=== PATIENT | male | born 1995 | race African-American/Black ===

== ENCOUNTER 2017-08-13 19:56 | Emergency (ER) | payer OTHER ==
[2017-08-13] MEDS ORDERED: fentaNYL 100 MCG/2 ML INJECTION (J3010) As Ordered (20:24)
[2017-08-13] MEDS: fentaNYL 100 MCG/2 ML INJECTION (J3010) IV ×2 (20:27→21:46)
[2017-08-13] MEDS: NS 1,000 ML IV (20:45)
[2017-08-13] MEDS: MORPHINE 4 MG/ML 1ML VIAL/SYRINGE (J2270) IV (21:02)
[2017-08-13 21:17] LABS: BASO # 0.1 10^3/uL (0.0-0.2); BASO % 0.5 % (0.0-1.0); EOS # 0.2 10^3/uL (0.0-0.50); EOS % 1.1 % (0.0-3.0); HEMATOCRIT 37.8 % (42.0-52.0); HEMOGLOBIN 12.4 g/dl (13.5-17.5); IMMATURE GRANULOCYTE % 0.4 % (0-3.0); LYMPH # 1.8 10^3/uL (1.5-6.5); LYMPH % 13.3 % (24.0-44.0); MEAN CORPUSCULAR HEMOGLOBIN 28.7 pg (27.0-33.0); MEAN CORPUSCULAR HGB CONC 32.8 g/dl (32.0-36.5); MEAN CORPUSCULAR VOLUME 87.5 fl (80.0-96.0); MONO # 0.9 10^3/uL (0.0-0.8); MONO % 6.6 % (0.0-5.0); NEUTROPHILS # 10.9 10^3/uL (1.8-7.7); NEUTROPHILS % 78.1 % (36.0-66.0); PLATELET COUNT, AUTOMATED 278 10^3/uL (150-450); RED BLOOD COUNT 4.32 10^6/uL (4.30-6.10); RED CELL DISTRIBUTION WIDTH 11.2 % (11.5-14.5); WHITE BLOOD COUNT 13.9 10^3/uL (4.0-10.0)
[2017-08-13 21:45] LABS: ANION GAP 12 MEQ/L (8-16); BLOOD UREA NITROGEN 19 MG/DL (7-18); CALCIUM LEVEL 8.7 MG/DL (8.5-10.1); CARBON DIOXIDE LEVEL 27 MEQ/L (21-32); CHLORIDE LEVEL 103 MEQ/L (98-107); CREATININE FOR GFR 1.47 MG/DL (0.70-1.30); GLOMERULAR FILTRATION RATE > 60.0 (>60); GLUCOSE, FASTING 100 MG/DL (70-100); POTASSIUM SERUM 3.6 MEQ/L (3.5-5.1); SODIUM LEVEL 142 MEQ/L (136-145)
[2017-08-13] MEDS ORDERED: OXYCODONE/APAP 5MG/325MG(BULK FOR ED) 1 TABLET PO (22:00)
== END 2017-08-13 22:41 | disposition home or self-care (01) ==
LOC: M ED 19:56
DX: S82.442A Displaced spiral fracture of shaft of left fibula, initial encounter for closed fracture (principal); S93.05XA Dislocation of left ankle joint, initial encounter; W52.XXXA Crushed, pushed or stepped on by crowd or human stampede, initial encounter; Y92.9 Unspecified place or not applicable; Y93.61 Activity, american tackle football; Y99.9 Unspecified external cause status
CPT/HCPCS: J2270

== ENCOUNTER 2018-09-25 00:59 | Inpatient (IN) | payer OTHER ==
[~2018-09-25] VITALS: Ht 182.9 cm; Wt 90.9 kg
[2018-09-25 02:15] LABS: BASO % 0.3 % (0.0-1.0); EOS # 0.1 10^3/uL (0.0-0.50); EOS % 0.5 % (0.0-3.0); HEMATOCRIT 39.9 % (42.0-52.0); HEMOGLOBIN 12.8 g/dl (13.5-17.5); LYMPH # 1.2 10^3/uL (1.5-6.5); LYMPH % 9.9 % (24.0-44.0); MEAN CORPUSCULAR HEMOGLOBIN 29.7 pg (27.0-33.0); MEAN CORPUSCULAR HGB CONC 32.1 g/dl (32.0-36.5); MEAN CORPUSCULAR VOLUME 92.6 fl (80.0-96.0); MONO # 0.7 10^3/uL (0.0-0.8); MONO % 5.7 % (0.0-5.0); NEUTROPHILS # 9.8 10^3/uL (1.8-7.7); NEUTROPHILS % 83.2 % (36.0-66.0); PLATELET COUNT, AUTOMATED 279 10^3/uL (150-450); RED BLOOD COUNT 4.31 10^6/uL (4.30-6.10); WHITE BLOOD COUNT 11.7 10^3/uL (4.0-10.0)
--- NOTE | 2018-09-25 02:57 | REPVR ---
EXAM: CT Head Without Contrast EXAM DATE/TIME: 09/25/2018 1:59 AM CLINICAL HISTORY: 23 years old, male; Altered mental status/memory loss TECHNIQUE: Imaging protocol: Computed tomography images of the head without contrast. Radiation optimization: All CT scans at this facility use at least one of these dose optimization techniques: automated exposure control; mA and/or kV adjustment per patient size (includes targeted exams where dose is matched to clinical indication); or iterative reconstruction. COMPARISON: No relevant prior studies available. FINDINGS: Brain: No acute intracranial hemorrhage or mass effect. No discrete geographic area of hypoattenuation to suggest territorial infarct identified at this time. Ventricles: No ventriculomegaly. Bones/joints: No acute fracture. Sinuses: Visualized sinuses are unremarkable. No fluid levels. Mastoid air cells: Visualized mastoid air cells are well aerated. No mastoid effusion. Soft tissues: Unremarkable. IMPRESSION: No acute intracranial abnormality. Electronically signed by: Jose Rowe On 09/25/2018 02:56:40 AM
[2018-09-25 03:15] LABS: ACETAMINOPHEN LEVEL < 2.0 UG/ML (10.0-30.0); ALBUMIN 4.2 GM/DL (3.2-5.2); ALT/SGPT 24 U/L (12-78); BILIRUBIN,DIRECT < 0.1 MG/DL (0.0-0.2); BILIRUBIN,TOTAL 0.3 MG/DL (0.2-1.0); BLOOD UREA NITROGEN 19 MG/DL (7-18); CARBON DIOXIDE LEVEL 28 MEQ/L (21-32); CHLORIDE LEVEL 105 MEQ/L (98-107); CK-MB VALUE MASS 2.7 NG/ML (<3.6); CPK CREATINE PHOSPHOKINASE 677 U/L (39-308); CREATININE FOR GFR 1.49 MG/DL (0.70-1.30); ETHYL ALCOHOL (ETHANOL) < 0.003 % (0.000-0.010); GLOMERULAR FILTRATION RATE > 60.0 (>60); GLUCOSE, FASTING 101 MG/DL (70-100); POTASSIUM SERUM 4.3 MEQ/L (3.5-5.1); SALICYLATE LEVEL < 1.7 MG/DL (5.0-30.0); SODIUM LEVEL 139 MEQ/L (136-145); TOTAL PROTEIN 7.9 GM/DL (6.4-8.2); TROPONIN I < 0.02 NG/ML (< 0.10)
--- NOTE | 2018-09-25 04:20 | ECGEPIP ---
[facility] - ED Test Date: 2018-09-25 Pat Name: ISIAH BOUCHER Department: Room: - Gender: Male Steel Cutter: juan manuel : 1995 Requested By: RISHABH Hernández Order Number: [id number] Reading MD: Umang Villarreal Measurements Intervals [place] Rate: 64 P: 37 FL: 193 QRS: 44 QRSD: 102 T: 21 QT: 354 QTc: 365 Interpretive Statements SINUS RHYTHM WITH OCCASIONAL SUPRAVENTRICULAR PREMATURE COMPLEXES INCOMPLETE RIGHT BUNDLE BRANCH BLOCK BENIGN EARLY REPOLARIZATION NO PRIORS FOR COMPARISON Electronically Signed on 09-25-2018 4:20:09 EDT by Umang Villarreal
[2018-09-25 04:22] LABS: AMPHETAMINES LEVEL URINE NEGATIVE (NEGATIVE); BARBITURATES URINE NEGATIVE (NEGATIVE); BENZODIAZEPINES URINE NEGATIVE (NEGATIVE); CANNABINOIDS URINE NEGATIVE (NEGATIVE); COCAINE METABOLITE URINE NEGATIVE (NEGATIVE); METHADONE URINE NEGATIVE (NEGATIVE); OPIATES URINE NEGATIVE (NEGATIVE); PHENCYCLIDINE URINE NEGATIVE (NEGATIVE)
[2018-09-25] MEDS ORDERED: LORazepam 2 MG/ML VIAL (J2060) IM STA (05:02)
[2018-09-25] MEDS ORDERED: LORazepam 1 MG TAB PO PRN (06:00)
[2018-09-25] MEDS ORDERED: HALOPERIDOL 5 MG TAB PO PRN (06:00)
[2018-09-25] MEDS ORDERED: MAALOX 30 ML SUSP *UDC PO PRN (06:00)
[2018-09-25] MEDS ORDERED: traZODone 50 MG TAB PO PRN (06:00)
[2018-09-25] MEDS ORDERED: MOM 30ML SUSPENSION UDC PO PRN (06:00)
[2018-09-25] MEDS ORDERED: ACETAMINOPHEN TAB 650MG DOSE (2X325MG) PO PRN (06:00)
--- NOTE | 2018-09-25 07:42 | REP ---
Clinical: Altered mental status . Comparison: None . Findings: The mediastinum and cardiac silhouette are stable and within normal limits for portable technique. The lung woodward are clear without acute consolidation, effusion, or pneumothorax. Skeletal structures are intact. Impression: No acute cardiopulmonary process appreciated. Electronically Signed by Cameron Watkins MD 09/25/2018 07:34 A
[2018-09-25 09:52] VITALS: BP 135/79
--- NOTE | 2018-09-25 11:56 | MHHPEPDOC ---
General Date Of Admission: Sep 25, 2018 Legal Status: 9.39 Chief Complaint "Nate is the current president." History of Present Illness HISTORY OF THE PRESENT ILLNESS: Patient is a 23 -year-old , Jehovah Witness, AD, male, with no previous psychiatric history who was brought in by command due to bizarre behavior per ED. When pt in ED he was unable to formulate sentences beyond "yes/no" responses and would say things this "ummm" and "ok" when asked why he was in the hospital, exhibiting bizarre behavior, disorganized thoughts, anxiety/fear, flat affect, attempting to leave room frequently but redirectable, when able to formulate a sentence made illogical comments such as "Nate is the current President" and "I just wanted blue eyes, ummm, light skin tone." He did not fully endorse AVH and denied SI/HI ("no"). Utox neg. Psychiatric Review of Systems Depression (2 or more weeks): denies Maria (4 or more days of): denies Psychosis: auditory hallucination, disorganization PTSD: denies Anxiety: denies Anxiety/ 6 months or more of: restlessness, keyed up Past Psychiatric History Previous Psychiatric Diagnosis: denies Previous Psychiatric Admissions: denies Suicide Attempts: denies Psychiatric Follow-up: denies Psychiatric medications: denies Past Medical History Medical Problems denies Head Injury: No Seizures: No Hospitalizations: No Surgeries: No Family Medical/Psychiatric HX Medical Problems noncontributory Psychiatric Disorders: No Addiction: No Suicide Attemps/Completions: No Addiction History denies (utox neg), other (could have possible been slipped unknowning a hallucinogenic or psychodelic by someone he was with last [facility]) Social History Childhood: Raised a a [place] Witness, family very close, 2 parent home and has siblings, good childhood Abuse/Trauma:denies Current Living Situation: [facility] Education: high school grad Employment: [employer] Social Support: family Legal: denies Marital: single Mental Status Examination General Appearance: well groomed, appears stated age, hospital scubs/clothing Build: average Demeanor: average Eye Contact: fair Activity: average Behavior: cooperative Speech: clear, spontaneous, reg/rate,rhythm,volume Mood: euthymic Mood "ok" Affect: full, appropriate, congruent Thought Process: logical/linear, intact Thought Content (Delusions): none reported, denies SI, HI, AVH Thought Content (Other): none reported Thought Content (Aggressive): none reported Perception (Hallucinations): none reported Perception (Other): none reported Cognition (Impairment of): none reported Cognition(Intelligence Est.): average Oriented: Awake, Alert, Oriented times three Insight: fair Judgment: Fair Psychosis: Denies Diagnoses Unspecified Psychosis R/O psychosis secondary to hallucinogenic vs psychedelic (given to him w/o consent or knowledge) A-FIB/CHADSVASC A-FIB History Current/History of A-Fib/PAF?: No Current PO Anticoag Therapy: No Treatment Treatment ordered: NONE Reason Anticoagulant not given: Not indicated/[id number] Assessment Pt seen and oriented to time and situation. He sounds logical and is not acting bizarre or exhibiting any symptoms of disorganization. He is calm, cooperative, and pleasant. States that some friends asked him to go out and didn't want to at first then eventually did in friend's care, friends offered him a drink which he states he refused, at sometime starting having difficulty thinking, felt "strange," unable to focus on anything, was hearing "something" like maybe a voice, and scared as didn't know what was happening to him. States today that he has never felt that way before and feels more like himself today. Unsure if he was slipped a drug unknowingly by one of the people he was with, possibly a hallucinogenic or psychedelic (base on symptoms in ED and neg utox). Per staff currently being investigated for theft of thousands of dollars from some one that is an acquaintance of his. Initial Treatment Plan 1. Patient was admitted on a 9.39 status. 2. Complete history was obtained. 3. With patients permission, family will be contacted and database will be expanded. 4. Patients medication regimen will be reviewed and changed accordingly. 5. Patient will be provided with protected environment. 6. Patient will be treated with individual, group, and milieu therapies. 7. Patient will receive supportive psych-education. 8. Discharge planning will commence immediately. 9. Outpatient follow-up treatment will be strongly recommended. 10. The initial treatment plan will focus initially on: * Depression. * Risk for suicide. * Substance abuse. 11. monitor for safety ESTIMATED LENGTH OF STAY: 5-7 DAYS. TIME SPENT COUNSELING AND COORDINATING INITIAL CARE: 60 minutes. Vital Signs Vital Signs Date Time Temp Pulse Resp B/P (MAP) Pulse Ox O2 Delivery O2 Flow Rate FiO2 09/25/18 09:52 98.7 70 18 135/79 (97) 09/25/18 09:30 99 09/25/18 06:21 Room Air Laboratory Data 24H Labs Laboratory Tests 2 09/25/18 01:15: Bedside Glucose (Misc Panel) 97 09/25/18 02:08: Immature Granulocyte % (Auto) 0.4, White Blood Count 11.7H, Red Blood Count 4.31, Hemoglobin 12.8L, Hematocrit 39.9L, Mean Corpuscular Volume 92.6, Mean Corpuscular Hemoglobin 29.7, Mean Corpuscular Hemoglobin Concent 32.1, Red Cell Distribution Width 11.3L, Platelet Count 279, Neutrophils (%) (Auto) 83.2H, Lymphocytes (%) (Auto) 9.9L, Monocytes (%) (Auto) 5.7H, Eosinophils (%) (Auto) 0.5, Basophils (%) (Auto) 0.3, Neutrophils # (Auto) 9.8H, Lymphocytes # (Auto) 1.2L, Monocytes # (Auto) 0.7, Eosinophils # (Auto) 0.1, Basophils # (Auto) 0.0, Nucleated Red Blood Cells % (auto) 0.0, Anion Gap 6L, Glomerular Filtration Rate > 60.0, Calcium Level 9.0, Aspartate Amino Transf (AST/SGOT) 25, Alanine Aminotransferase (ALT/SGPT) 24, Alkaline Phosphatase 52, Total Bilirubin 0.3, Direct Bilirubin < 0.1, Total Creatine Kinase 677H, Creatine Kinase MB 2.7, Creatine Kinase MB Relative Index 0.40, Troponin I < 0.02, Total Protein 7.9, Albumin 4.2, Albumin/Globulin Ratio 1.14, Thyroid Stimulating Hormone (TSH) 1.580, Salicylates Level < 1.7L, Acetaminophen Level < 2.0L, Ethyl Alcohol Level < 0.003 09/25/18 02:09: Urine Color YELLOW, Urine Appearance CLEAR, Urine pH 6.0, Urine Specific [place] 1.027, Urine Protein 1+H, Urine Glucose (UA) NEGATIVE, Urine Ketones TRACEH, Urine Blood 1+H, Urine Nitrite NEGATIVE, Urine Bilirubin NEGATIVE, Urine Urobilinogen 0.2, Urine Leukocyte Esterase NEGATIVE, Urine WBC (Auto) 1, Urine RBC (Auto) 11H, Urine Hyaline Casts (Auto) 0, Urine Bacteria (Auto) NEGATIVE, Urine Squamous Epithelial Cells 0, Urine Mucus (Auto) SMALL, Urine Sperm (Auto) 09/25/18 03:49: Urine Amphetamines Screen NEGATIVE, Urine Benzodiazepines Screen NEGATIVE, Urine Opiates Screen NEGATIVE, Urine Methadone Screen NEGATIVE, Urine Barbiturates Screen NEGATIVE, Urine Phencyclidine Screen NEGATIVE, Urine Cocaine Metabolite Screen NEGATIVE, Urine Cannabinoids Screen NEGATIVE CBC/BMP Laboratory Tests 09/25/18 02:08 Red Blood Count 4.31, Mean Corpuscular Volume 92.6, Mean Corpuscular Hemoglobin 29.7, Mean Corpuscular Hemoglobin Concent 32.1, Red Cell Distribution Width 11.3 L, Neutrophils (%) (Auto) 83.2 H, Lymphocytes (%) (Auto) 9.9 L, Monocytes (%) (Auto) 5.7 H, Eosinophils (%) (Auto) 0.5, Basophils (%) (Auto) 0.3, Neutrophils # (Auto) 9.8 H, Lymphocytes # (Auto) 1.2 L, Monocytes # (Auto) 0.7, Eosinophils # (Auto) 0.1, Basophils # (Auto) 0.0 Medications No Active Prescriptions or Reported Meds Allergies Coded Allergies: No Known Allergies (Unverified , 09/25/18) MARY RICHARDS DO Sep 25, 2018 11:55
--- NOTE | 2018-09-25 14:54 | HPEPDOC ---
[facility] Medical History & Physical Date of Admission Sep 25, 2018 Date of Service: Sep 25, 2018 Attending Physician: BISHOP HAWKINS MD History and Physical CHIEF COMPLAINT: unusual thoughts HISTORY OF PRESENT ILLNESS: 23yo male w no sig PMH who is admitted to the mental health unit after he was observed at [facility] to be behaving unusually with unusual thoughts. He currently denies any complaints or any pain. Denies SI/HI. PAST MEDICAL HISTORY: None PAST SURGICAL HISTORY: L ankle surgery in 2018 SOCIAL HISTORY: permanent home is in [place] 2-3 drinks per day on the weekends no smoking no recreational drugs FAMILY HISTORY: both grandmothers with DM as well as father w DM ALLERGIES: Please see below. REVIEW OF SYSTEMS: neg in systems except as above HOME MEDICATIONS: Please see below. PHYSICAL EXAMINATION: VITAL SIGNS: reviewed GENERAL APPEARANCE: NAD. HEENT: OP clear CARDIOVASCULAR: RRR no mrg LUNGS: CTAB no wrr ABDOMEN: soft NT ND MUSCULOSKELETAL: Moves all extremities equally EXTREMITIES: No c/c/e NEUROLOGICAL: AxO follows commands, no focal neuro deficits PSYCHIATRIC: decreased eye contact LABORATORY DATA: See below. ASSESSMENT: 23yo male w no prior PMH or past psych history admitted with unusual thoughts and behaviors . PLAN: - patient has no medical needs at this time. On no home medications - psychiatric plan of care per psychiatry Vital Signs Vital Signs Date Time Temp Pulse Resp B/P (MAP) Pulse Ox O2 Delivery O2 Flow Rate FiO2 09/25/18 09:52 98.7 70 18 135/79 (97) 09/25/18 09:30 99 09/25/18 06:21 Room Air Laboratory Data Labs 24H Laboratory Tests 2 09/25/18 01:15: Bedside Glucose (Misc Panel) 97 09/25/18 02:08: Immature Granulocyte % (Auto) 0.4, White Blood Count 11.7H, Red Blood Count 4.31, Hemoglobin 12.8L, Hematocrit 39.9L, Mean Corpuscular Volume 92.6, Mean Corpuscular Hemoglobin 29.7, Mean Corpuscular Hemoglobin Concent 32.1, Red Cell Distribution Width 11.3L, Platelet Count 279, Neutrophils (%) (Auto) 83.2H, Lymphocytes (%) (Auto) 9.9L, Monocytes (%) (Auto) 5.7H, Eosinophils (%) (Auto) 0.5, Basophils (%) (Auto) 0.3, Neutrophils # (Auto) 9.8H, Lymphocytes # (Auto) 1.2L, Monocytes # (Auto) 0.7, Eosinophils # (Auto) 0.1, Basophils # (Auto) 0.0, Nucleated Red Blood Cells % (auto) 0.0, Anion Gap 6L, Glomerular Filtration Rate > 60.0, Calcium Level 9.0, Aspartate Amino Transf (AST/SGOT) 25, Alanine Aminotransferase (ALT/SGPT) 24, Alkaline Phosphatase 52, Total Bilirubin 0.3, Direct Bilirubin < 0.1, Total Creatine Kinase 677H, Creatine Kinase MB 2.7, Creatine Kinase MB Relative Index 0.40, Troponin I < 0.02, Total Protein 7.9, Albumin 4.2, Albumin/Globulin Ratio 1.14, Thyroid Stimulating Hormone (TSH) 1.580, Salicylates Level < 1.7L, Acetaminophen Level < 2.0L, Ethyl Alcohol Level < 0.003 09/25/18 02:09: Urine Color YELLOW, Urine Appearance CLEAR, Urine pH 6.0, Urine Specific [place] 1.027, Urine Protein 1+H, Urine Glucose (UA) NEGATIVE, Urine Ketones TRACEH, Urine Blood 1+H, Urine Nitrite NEGATIVE, Urine Bilirubin NEGATIVE, Urine Urobilinogen 0.2, Urine Leukocyte Esterase NEGATIVE, Urine WBC (Auto) 1, Urine RBC (Auto) 11H, Urine Hyaline Casts (Auto) 0, Urine Bacteria (Auto) NEGATIVE, Urine Squamous Epithelial Cells 0, Urine Mucus (Auto) SMALL, Urine Sperm (Auto) 09/25/18 03:49: Urine Amphetamines Screen NEGATIVE, Urine Benzodiazepines Screen NEGATIVE, Urine Opiates Screen NEGATIVE, Urine Methadone Screen NEGATIVE, Urine Barbiturates Screen NEGATIVE, Urine Phencyclidine Screen NEGATIVE, Urine Cocaine Metabolite Screen NEGATIVE, Urine Cannabinoids Screen NEGATIVE CBC/BMP Laboratory Tests 09/25/18 02:08 Red Blood Count 4.31, Mean Corpuscular Volume 92.6, Mean Corpuscular Hemoglobin 29.7, Mean Corpuscular Hemoglobin Concent 32.1, Red Cell Distribution Width 11.3 L, Neutrophils (%) (Auto) 83.2 H, Lymphocytes (%) (Auto) 9.9 L, Monocytes (%) (Auto) 5.7 H, Eosinophils (%) (Auto) 0.5, Basophils (%) (Auto) 0.3, Neutrophils # (Auto) 9.8 H, Lymphocytes # (Auto) 1.2 L, Monocytes # (Auto) 0.7, Eosinophils # (Auto) 0.1, Basophils # (Auto) 0.0 Home Medications No Active Prescriptions or Reported Meds Allergies Coded Allergies: No Known Allergies (Unverified , 09/25/18) A-FIB/CHADSVASC A-FIB History Current/History of A-Fib/PAF?: No Current PO Anticoag Therapy: BISHOP Hoyt MD Sep 25, 2018 14:54
[2018-09-25 18:23] VITALS: BP 125/62
[2018-09-26 06:55] VITALS: BP 118/55
--- NOTE | 2018-09-26 09:17 | MHIPNPDOC ---
[facility] Progress Note Progress Note DATE OF SERVICE: 09/26/18 HISTORY: Patient is a 23 -year-old , Jehovah Witness, AD, male, with no previous psychiatric history who was brought in by command due to bizar re behavior per ED. When pt in ED he was unable to formulate sentences beyond "yes/no" responses and would say things this "ummm" and "ok" when asked why he was in the hospital, exhibiting bizarre behavior, disorganized thoughts, anxiety/fear, flat affect, attempting to leave room frequently but redirectable, when able to formulate a sentence made illogical comments such as "Nate is the current President" and "I just wanted blue eyes, ummm, light skin tone." He did not fully endorse AVH and denied SI/HI ("no"). Utox neg. Pt seen and oriented to time and situation. He sounds logical and is not acting bizarre or exhibiting any symptoms of disorganization. He is calm, cooperative, and pleasant. States that some friends asked him to go out and didn't want to at first then eventually did in friend's care, friends offered him a drink which he states he refused, at sometime starting having difficulty thinking, felt "strange," unable to focus on anything, was hearing "something" like maybe a voice, and scared as didn't know what was happening to him. States today that he has never felt that way before and feels more like himself today. Unsure if he was slipped a drug unknowingly by one of the people he was with, possibly a hallucinogenic or psychedelic (base on symptoms in ED and neg utox). Per staff currently being investigated for theft of thousands of dollars from some one that is an acquaintance of his. VITAL SIGNS: See below. NEW TEST RESULTS: See below. CURRENT MEDICATIONS: See below. MENTAL STATUS EXAMINATION: General Appearance: well groomed, appears stated age, hospital scubs/clothing Build: average Demeanor: average Eye Contact: fair Activity: average Behavior: cooperative Speech: clear, spontaneous, reg/rate,rhythm,volume Mood: euthymic Mood "ok" Affect: full, appropriate, congruent Thought Process: logical/linear, intact Thought Content (Delusions): none reported, denies SI, HI, AVH Thought Content (Other): none reported Thought Content (Aggressive): none reported Perception (Hallucinations): none reported Perception (Other): none reported Cognition (Impairment of): none reported Cognition(Intelligence Est.): average Oriented: Awake, Alert, Oriented times three Insight: fair Judgment: Fair Psychosis: Denies DIAGNOSES: Unspecified Psychosis R/O psychosis secondary to hallucinogenic vs psychedelic (given to him w/o consent or knowledge) ASSESSMENT:Pt seen and states that his mood is good and denies any symptoms of psychosis since the night he was admitted and feels like himself. He does not appear psychotic and is able to maintain attention with linear and logical thoughts. He is cooperative, appropriate, and pleasant. States he slept well last night. He is attending groups and finding them helpful. He denies SI/HI, hallucinations, delusions. Pt feels safe here. MANAGEMENT PLAN: d/c Thursday medications: haldol 10mg q6hr prn anxiety/agitation ativan 2mg q6hr prn anxiety/agitation trazodone 50mg qhs prn insomnia TIME SPENT: 30 minutes. Vital Signs Vital Signs Date Time Temp Pulse Resp B/P (MAP) Pulse Ox O2 Delivery O2 Flow Rate FiO2 09/26/18 06:55 97.2 50 12 118/55 (76) 09/25/18 09:30 99 09/25/18 06:21 Room Air Current Medications Current Medications Medications (Trade) Dose Ordered Sig/Kevin Route PRN Reason Start Time Stop Time Status Last Admin Dose Admin Acetaminophen (Tylenol Tab) 650 mg Q6HP PRN PO HEADACHE or DISCOMFORT 09/25/18 06:00 Al Hydrox/Mg Hydrox/Simethicone (Mylanta) 30 ml Q4HP PRN PO HEARTBURN/INDIGESTION 09/25/18 06:00 Haloperidol (Haldol) 5 mg Q6HP PRN PO ANXIETY/AGITATION 09/25/18 06:00 Lorazepam (Ativan) 2 mg Q6HP PRN PO ANXIETY/AGITATION 09/25/18 06:00 Lorazepam (Ativan) 2 mg STAT STAT IM 09/25/18 05:02 09/25/18 05:04 DC 09/25/18 05:09 Magnesium Hydroxide (Milk Of Magnesia) 30 ml DAILYPRN PRN PO CONSTIPATION 09/25/18 06:00 Trazodone HCl (Desyrel) 50 mg QHSP PRN PO INSOMNIA 09/25/18 06:00 Allergies Coded Allergies: No Known Allergies (Unverified , 09/25/18) MARY RICHARDS DO Sep 26, 2018 9:17 am
[2018-09-26 18:26] VITALS: BP 123/60
[2018-09-27 06:55] VITALS: BP 128/57
--- NOTE | 2018-09-27 10:50 | MHIPNPDOC ---
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 The patient does have notable stressors including a pending legal earlene ge for theft, however, upon initial assessment, the primary school library media specialist was concerned with the patient being intoxicated with a hallucinogen. Interval History The patient's met with today. He describes that he's unable to remember the situation that led him, but he's no longer feeling the same thoughts that he had when he had presented. Nursing staff notes that he's much more able to attend to his needs, social and much less bizarre. He has been attending groups and generally is able to focus on his needs. No significant concerns have been raised. The patient's on no standing medications at this time. Review Of Systems Significant reduction in bizarre thinking, tangential thought process and sparse speech. Psychotherapy None on this visit. Vital Signs Reviewed. Mental Status Examination General: Well dressed with good hygiene Speech: Spontaneous and fluid Thought processes: Linear and logical MSK: Smooth and coordinated gait, no signs of tremors or involuntary orofacial movements Thought content: Future orientated Abstract reasoning, and computation: Intact Description of associations: Intact Description of abnormal or psychotic thoughts: Denies any suicidal or homicidal ideation. Denies any auditory or visual hallucinations. Does not appear to be responding to internal stimuli. Does not appear to be endorsing any bizarre or paranoid ideation. Judgment: fair Insight: fair Orientation: Alert and orientated 3 Cognition: Grossly normal Recent and remote memory: Intact Attention span and concentration: Intact Fund of knowledge: Adequate Mood: "okay" Affect: Euthymic with a full range Diagnoses Unspecified psychotic disorder. Rule out medically induced versus substance. Assessment and Plan The patient appears to be making strong improvement with very little interventions on the unit suggesting an organic versus substance induced cause. In order to work this up, the patient will likely need an EEG, as his presentation is also concerning for temporal lobe epilepsy, as this can cause similar presentation with the aforementioned "bright lights." However, he likely does not need a standing neuroleptic, as the other part of the differential include substance induced, which given his rapid and precipitous progression on the unit is equally as likely Disposition The patient will likely be discharged tomorrow once further workup is completed and thus ensuring the patient's safety, as the potential of a seizure disorder could be potentially disastrous for the patient if he's in active duty. Time Spent 15 minutes face to face. Thursday Vital Signs Vital Signs Date Time Temp Pulse Resp B/P (MAP) Pulse Ox O2 Delivery O2 Flow Rate FiO2 09/27/18 06:55 97.8 52 14 128/57 (80) 09/25/18 09:30 99 09/25/18 06:21 Room Air Current Medications Current Medications Medications (Trade) Dose Ordered Sig/Kevin Route PRN Reason Start Time Stop Time Status Last Admin Dose Admin Acetaminophen (Tylenol Tab) 650 mg Q6HP PRN PO HEADACHE or DISCOMFORT 09/25/18 06:00 Al Hydrox/Mg Hydrox/Simethicone (Mylanta) 30 ml Q4HP PRN PO HEARTBURN/INDIGESTION 09/25/18 06:00 Haloperidol (Haldol) 5 mg Q6HP PRN PO ANXIETY/AGITATION 09/25/18 06:00 Lorazepam (Ativan) 2 mg Q6HP PRN PO ANXIETY/AGITATION 09/25/18 06:00 Lorazepam (Ativan) 2 mg STAT STAT IM 09/25/18 05:02 09/25/18 05:04 DC 09/25/18 05:09 Magnesium Hydroxide (Milk Of Magnesia) 30 ml DAILYPRN PRN PO CONSTIPATION 09/25/18 06:00 Trazodone HCl (Desyrel) 50 mg QHSP PRN PO INSOMNIA 09/25/18 06:00 Allergies Coded Allergies: No Known Allergies (Unverified , 09/25/18) RENE GRANT DO Sep 27, 2018 10:50
[2018-09-27 18:19] VITALS: BP 142/88
[2018-09-28 06:38] VITALS: BP 106/63
--- NOTE | 2018-09-28 17:15 | MHDSPDOC ---
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 The patient does have notable stressors including a pending legal charge for theft, however, upon initial assessment, the primary chief order dispatcher was concerned with the patient being intoxicated with a hallucinogen. Consultants Involved Hospitalist/PCP screening Treatment and Progress On The Unit Patient was admitted to the unit and subsequently observed with no medications. His psychosis spontaneously resolves suggesting medical versus substance ever cari. The patient was observed over a few more days and subsequently was known to be fairly average, sociable and demonstrated no concerning behavior or ideation to staff and he was able to attend to his needs. Due to the concerning signs on his admission an EEG sleep deprived was ordered prior to his discharge in order to parse out whether a seizure such as a temporal lobe epilepsy was at play. Additionally, after exploring the story of the patient is the equally possible that the patient could have been poisoned with LSD. However, the patient requested discharge and did not meet involuntary criteria anymore as he was attending his needs and demonstrating no concerning ideation, behavior on the unit and thus was discharged and had elected against a further voluntary admission. Discharge Assessment 23-year old man with an episode of psychosis that appears to be strongly related to either substance induced from pollution and poisoning or seizure related. Mental Status Examination General: Well dressed with good hygiene Speech: Spontaneous and fluid Thought processes: Linear and logical MSK: Smooth and coordinated gait, no signs of tremors or involuntary orofacial movements Thought content: Future orientated Abstract reasoning, and computation: Intact Description of associations: Intact Description of abnormal or psychotic thoughts: Denies any suicidal or homicidal ideation. Denies any auditory or visual hallucinations. Does not appear to be responding to internal stimuli. Does not appear to be endorsing any bizarre or paranoid ideation. Judgment: fair Insight: fair Orientation: Alert and orientated 3 Cognition: Grossly normal Recent and remote memory: Intact Attention span and concentration: Intact Fund of knowledge: Adequate Mood: "okay" Affect: Euthymic with a full range Follow Up The social work team worked during the predischarge meeting in order to evaluate for further issues of lethality address them fully before discharge. They worked on safety planning with the patient's family members in order to ensure that the patient will have a safe and effective discharge. EEG results are pending on discharge, follow up with that result would be ideal in order to ascertain whether a seizure disorder will need to be treated. Time Spent The amount of time spent in the coordination of care for this patient was approximately 30 minutes. Thursday Vital Signs/I&Os Vital Signs Date Time Temp Pulse Resp B/P (MAP) Pulse Ox O2 Delivery O2 Flow Rate FiO2 09/28/18 06:38 98.2 55 12 106/63 (77) 09/25/18 09:30 99 09/25/18 06:21 Room Air Medications No Active Prescriptions or Reported Meds Allergies Coded Allergies: No Known Allergies (Unverified , 09/25/18) RENE GRANT DO Sep 28, 2018 17:15
--- NOTE | 2018-09-30 13:41 | EEG ---
DATE OF EE09/28/2018 REFERRING PHYSICIAN: Dr. Massimo rGeene DIAGNOSIS: Seizure. 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 He presented notably after a bizarre episode where he had seen lights and begin to act bizarrely suddenly in the middle of an active weekend. He has a pending legal charge for theft. This EEG was done to rule out epileptic potential. There was concern that the patient was intoxicated with a hallucinogen. He is currently taking trazodone, Haldol, Ativan, etc. TECHNICAL DESCRIPTION: This digital EEG was recorded by 21 scalp, ear and two EKG electrodes and was reviewed in bipolar and referential montages following reformatting in 10-20 international electrode placement system. INTERPRETATION: The patient was noted to be in awake and drowsy states during this EEG. Resting awake background rhythm consisted of well-formed posterior dominant rhythm with anterior/posterior gradient comprising of 11 Hz alpha activity measuring 15-40 microvolts in amplitude which were symmetric and reactive to eye opening. Attenuation of posterior dominant rhythm was seen during transition into drowsiness. Stage 1 and 2 sleep were reviewed and were symmetric bilaterally. Hyperventilation elicited mild theta slowing of background rhythm. Photic stimulation elicited symmetric photic driving especially at mid frequencies. EKG revealed normal sinus rhythm. No focal, lateralizing or epileptiform abnormalities were seen. No relevant clinical activity was noted. CONCLUSION: This EEG in awake, drowsy states, stage 1 and 2 sleep, is within normal limits.
== END 2018-09-28 13:09 | disposition home or self-care (01) | DRG 885 ==
LOC: M ED 00:59 → M ED INP 05:59 → M PSY 09:45
PROVIDERS: ADMIT Psychiatry & Neurology Psychiatry; ATTEND Psychiatry & Neurology Addiction Medicine
DX: F29 Unspecified psychosis not due to a substance or known physiological condition (principal)

== ENCOUNTER 2020-05-01 04:17 | Emergency (ER) | payer OTHER ==
[~2020-05-01] VITALS: Ht 177.8 cm; Wt 95.0 kg
[2020-05-01] MEDS ORDERED: HYDR-3715 PO (04:34)
[2020-05-01] MEDS ORDERED: METH4PACK PO (04:34)
[2020-05-01] MEDS ORDERED: IBUP80TA PO (04:34)
[2020-05-01] MEDS ORDERED: OXYMETAZOLINE 0.05% NASAL SPRAY (AFRIN) ONE ×2 (04:55→05:00)
[2020-05-01 06:23] LABS: BASO % 0.3 % (0.0-1.0); EOS # 0.3 10^3/uL (0.0-0.5); EOS % 2.8 % (0.0-3.0); HEMATOCRIT 40.4 % (42.0-52.0); HEMOGLOBIN 12.9 g/dl (13.5-17.5); LYMPH # 3.4 10^3/uL (1.5-5.0); LYMPH % 36.1 % (24.0-44.0); MEAN CORPUSCULAR HEMOGLOBIN 28.4 pg (27.0-33.0); MEAN CORPUSCULAR HGB CONC 31.9 g/dl (32.0-36.5); MEAN CORPUSCULAR VOLUME 88.8 fl (80.0-96.0); MONO # 0.7 10^3/uL (0.0-0.8); MONO % 7.7 % (2.0-8.0); NEUTROPHILS % 52.7 % (36.0-66.0); PLATELET COUNT, AUTOMATED 319 10^3/uL (150-450); RED BLOOD COUNT 4.55 10^6/uL (4.30-6.10); WHITE BLOOD COUNT 9.4 10^3/uL (4.0-10.0)
[2020-05-01 06:27] VITALS: BP 148/88
== END 2020-05-01 06:28 | disposition home or self-care (01) ==
LOC: M ED 04:17
DX: L76.22 Postprocedural hemorrhage of skin and subcutaneous tissue following other procedure (principal)